=== PATIENT | female | born 1940 | race Caucasian/White ===

== ENCOUNTER 2021-04-19 11:49 | Emergency (ER) | payer MEDICARE ==
[2021-04-19 13:34] LABS: #Eosinphils 0.2 10x3/uL (0.0-0.5); #Neutrophils 6.8 10x3/uL (1.5-8.4); %Basophils 0.3 % (0.0-2.0); %Lymphocytes 24.5 % (18.0-47.0); %Monocytes 9.2 % (0.0-10.0); %Neutrophils 63.8 % (40.0-75.0); Hemoglobin 15.1 g/dL (12.0-15.5); Mean Corpuscular HGB CONC 32.3 g/dL (32.0-36.0); Mean Corpuscular Hemoglobin 30.3 pg (27.0-33.0); Mean Platelet Volume 10.5 fl (7.4-10.4); Platelet Count 226 10x3/uL (150-450); RBC Distribution Width 12.6 % (11.5-14.5); Red Blood Cell (RBC) Count 4.98 10x6/uL (3.90-5.03); White Blood Cell (WBC) Count 10.7 10x3/uL (3.5-10.5)
[2021-04-19 13:40] LABS: ALT (SGPT) 25 U/L (8-55); AST (SGOT) 27 U/L (5-34); Albumin 4.5 g/dL (3.4-4.8); Alkaline Phosphatase 81 U/L (40-110); Anion Gap 15 mmol/L (10-20); BUN (Urea Nitrogen) 19 mg/dL (9.8-20.1); Bilirubin, Total 0.4 mg/dL (0.2-1.2); CK (CPK) 107 U/L (29-168); Calc. Creatinine Clearance 0 mL/min (70-130); Calcium 9.5 mg/dL (7.8-10.44); Carbon Dioxide 25 mmol/L (23-31); Chloride 104 mmol/L (98-107); Globulin 2.9 g/dL (2.4-3.5); Glucose 95 mg/dL (83-110); Potassium 4.9 mmol/L (3.5-5.1); Protein, Total 7.4 g/dL (5.8-8.1); Sodium 139 mmol/L (136-145)
[2021-04-19 16:05] LABS: Troponin I Less than 0.010 ng/mL (< 0.028)
== END 2021-04-19 16:59 | disposition home or self-care (01) ==
LOC: CSHERS 11:49
DX: R55 Syncope and collapse (principal); E03.9 Hypothyroidism, unspecified; E78.5 Hyperlipidemia, unspecified; E78.00 Pure hypercholesterolemia, unspecified; Z87.891 Personal history of nicotine dependence; Z79.899 Other long term (current) drug therapy
CPT/HCPCS: 36415; 71045; 80053; 82550; 84484; 85025; 85379; 93005

== ENCOUNTER 2021-07-27 09:40 | Emergency (ER) | payer MEDICARE | END 2021-07-27 11:00 | disposition home or self-care (01) | LOC: CSHERS 09:40 | DX: M79.10 Myalgia, unspecified site (principal); R07.81 Pleurodynia; M25.511 Pain in right shoulder; E78.5 Hyperlipidemia, unspecified; E78.00 Pure hypercholesterolemia, unspecified; E03.9 Hypothyroidism, unspecified; Z87.891 Personal history of nicotine dependence; Z79.899 Other long term (current) drug therapy; V89.2XXA Person injured in unspecified motor-vehicle accident, traffic, initial encounter | CPT/HCPCS: 71045; 93005 ==

== ENCOUNTER 2023-02-13 14:11 | Outpatient (CLI) | payer MEDICARE | END 2023-02-13 14:12 | disposition home or self-care (01) | LOC: CSHRAD 14:11 | PROVIDERS: ATTEND Internal Medicine Rheumatology | DX: M81.0 Age-related osteoporosis without current pathological fracture (principal); M41.84 Other forms of scoliosis, thoracic region | CPT/HCPCS: 72072 ==